=== PATIENT | female | born 1980 | race Caucasian/White ===

== ENCOUNTER 2023-05-12 12:31 | Outpatient (CLI) | payer OTHER | END 2023-05-12 12:32 | disposition home or self-care (01) | LOC: SCSMRI 12:31 | PROVIDERS: ATTEND Internal Medicine | DX: M47.26 Other spondylosis with radiculopathy, lumbar region (principal); M25.551 Pain in right hip; M89.38 Hypertrophy of bone, other site; M25.451 Effusion, right hip; M70.61 Trochanteric bursitis, right hip; M67.853 Other specified disorders of tendon, right hip; R60.0 Localized edema; S73.191A Other sprain of right hip, initial encounter; M94.251 Chondromalacia, right hip; M67.854 Other specified disorders of tendon, left hip | CPT/HCPCS: 72148; 72195 ==